=== PATIENT | male | born 1990 | race Native Hawaiian/Other Pacific Islander ===

== ENCOUNTER 2016-12-11 20:08 | Emergency (ER) | payer SELFPAY ==
[2016-12-11 20:22] VITALS: BP 116/65; PULSE 87; RESP 16; TEMP 98.2; O2SAT 100
--- NOTE | 2016-12-11 20:33 | ED PDOC ---
Lower Extremity Pain/Injury Time Seen by Provider: 12/11/16 20:27 Chief Complaint (Nursing): Abnormal Skin Integrity Chief Complaint (Provider): Bilateral Leg Lacerations History Per: Patient History/Exam Limitations: no limitations Onset/Duration Of Symptoms: Hrs Current Symptoms Are (Timing): Still Present Severity: Mild Additional Complaint(s): Patient is a 26 year old male presenting to the ED complaining of bilateral walters lacerations earlier today. Patient was exercising, jumping on boxes. Patient landed wrong on one of the boxes and cut both of his shins. Denies numbness, tingling, or pain. Tetanus is up to date. PMD: none Past Medical History Reviewed: Historical Data, Nursing Documentation, Vital Signs Vital Signs: Last Vital Signs Temp 98.2 F 12/11/16 20:20 Pulse 87 12/11/16 20:20 Resp 16 12/11/16 20:20 BP 116/65 12/11/16 20:20 Pulse Ox 100 12/11/16 20:20 - Medical History PMH: No Chronic Diseases - Family History Family History: States: No Known Family Hx - Home Medications Home Medications: Ambulatory Orders Medication Instructions Recorded Cephalexin [cephalexin] 500 mg PO BID #20 cap 12/11/16 - Allergies Allergies/Adverse Reactions: Allergies Allergy/AdvReac Type Severity Reaction Status Date / Time No Known Allergies Allergy Verified 12/11/16 20:19 Review of Systems ROS Statement: Except As Marked, All Systems Reviewed And Found Negative Constitutional: Negative for: Fever Musculoskeletal: Positive for: Other (LAC to both shins: b/l leg: lacerations to chin-left 3cm right 4cm full thickness active bleeding muscle belly shown no bone noted FROM for b/l Feet. ). Negative for: Leg Pain Physical Exam - Reviewed Nursing Documentation Reviewed: Yes Vital Signs Reviewed: Yes - Physical Exam Appears: Positive for: Well, Non-toxic, No Acute Distress Head Exam: Positive for: ATRAUMATIC, NORMAL INSPECTION, NORMOCEPHALIC Skin: Positive for: Normal Color, Warm, DRY Eye Exam: Positive for: Normal appearance, EOMI Neck: Positive for: Normal, Painless ROM Pulses-Dorsalis Pedis (L): 2+ Pulses-Dorsalis Pedis (R): 2+ Extremity: Positive for: Normal ROM (can flex feet), Other (b/l leg: lacerations to chin-left 3cm right 4cm full thickness active bleeding muscle belly shown no bone noted FROM for b/l Feet. ) Neurologic/Psych: Positive for: Alert, Oriented - ECG O2 Sat by Pulse Oximetry: 100 (RA) Pulse Ox Interpretation: Normal Medical Decision Making Medical Decision Making: Time: 20:30 Impression: LAC Plan: LAC repair 8 sutures on the left walters 9 sutures on the right walters wound instructions provided. abx given Scribe Attestation: Documented by Elise Morel acting as a scribe for LASHON Cates. Provider Attestation: All medical record entries made by the Scribe were at my direction and personally dictated by me. I have reviewed the chart and agree that the record accurately reflects my personal performance of the history, physical exam, medical decision making, and the department course for this patient. I have also personally directed, reviewed, and agree with the discharge instructions and disposition. Disposition - Clinical Impression Clinical Impression: Laceration - Patient ED Disposition Is Patient to be Admitted: No Counseled Patient/Family Regarding: Diagnosis, Need For Followup, Rx Given - Disposition Disposition: Routine/Home Disposition Time: 22:10 Condition: STABLE Additional Instructions: do not wet wound for first couple of days take your antibiotics return in 12 days for suture removal Prescriptions: Cephalexin [cephalexin] 500 mg PO BID #20 cap Instructions: Care For Your Stitches (ED), Laceration (ED) Laceration - Laceration Repair No standard instances Wound Length (In cm): 3 Description Of Wound: Linear, Contused Tissue Wound Cleansed With: Betadine Anesthesia: Lidocaine 1%, With Epi Wound Examination: Irrigated With Saline, No FB With Wound Exploration, No Tendon Injury With Wound Exploration Wound Debridement/Revision: Wound Debrided Wound Closure: Suture Suture Technique And Material Used: Interrupted, Prolene (3-.) Wound Complexity: Simple #2 Wound Length (In cm): 4 Description Of Wound: Linear Wound Cleansed With: Betadine, Sterile Saline Anesthesia: Lidocaine 1%, With Epi Wound Examination: Irrigated With Saline, No FB With Wound Exploration, No Tendon Injury With Wound Exploration Wound Debridement/Revision: Wound Debrided Wound Closure: Suture Suture Technique And Material Used: Interrupted, Prolene (3-0) Wound Complexity: Simple
== END 2016-12-11 21:55 | disposition home or self-care (01) ==
LOC: H.ER 20:08
DX: S81.819A Laceration without foreign body, unspecified lower leg, initial encounter (principal); W22.8XXA Striking against or struck by other objects, initial encounter; Y92.89 Other specified places as the place of occurrence of the external cause

== ENCOUNTER 2016-12-24 14:09 | Emergency (ER) | payer SELFPAY ==
[2016-12-24 14:27] VITALS: BP 116/61; PULSE 80; RESP 16; TEMP 99; O2SAT 99
--- NOTE | 2016-12-24 14:39 | ED PDOC ---
HPI: Wound Care - HPI Time Seen by Provider: 12/24/16 14:28 Chief Complaint (Nursing): Suture/Staple Removal Chief Complaint (Provider): Suture Removal History Per: Patient History Of Present Illness: Pt. had sutures placed on both shins on 12/16/2016 here in [facility] and is here for suture removal. Denies pain, fever, discharge, swelling. Past Medical History Reviewed: Historical Data, Nursing Documentation, Vital Signs Vital Signs: Last Vital Signs Temp 99.0 F 12/24/16 14:25 Pulse 80 12/24/16 14:25 Resp 16 12/24/16 14:25 BP 116/61 12/24/16 14:25 Pulse Ox 99 12/24/16 14:25 - Family History Family History: States: No Known Family Hx - Home Medications Home Medications: Ambulatory Orders Medication Instructions Recorded Cephalexin [cephalexin] 500 mg PO BID #20 cap 12/11/16 - Allergies Allergies/Adverse Reactions: Allergies Allergy/AdvReac Type Severity Reaction Status Date / Time No Known Allergies Allergy Verified 12/11/16 20:19 Review of Systems ROS Statement: Except As Marked, All Systems Reviewed And Found Negative Physical Exam - Physical Exam Appears: Positive for: Well, Non-toxic, No Acute Distress Skin: Positive for: Normal Color, Warm. Negative for: Rash Extremity: Positive for: Normal ROM, Other (R anterior leg with [address] on wound which is healing well and is without erythema, discharge, or swelling; L anterior leg with [address] on wound which is healing well and is without erythema, discharge, or swelling) - ECG O2 Sat by Pulse Oximetry: 99 Procedure: Wound Repair - Time Performed Time Performed: 14:35 - Time Out Time Out: Side verified, Site verified, Patient ID confirmed - Procedure Procedure: Wound Repair: 8 sutures removed from L leg; 9 sutures removed from R leg - Patient tolerated procedure Patient Tolerated Procedure:: Well Disposition - Clinical Impression Clinical Impression: Encounter for removal of sutures - Patient ED Disposition Is Patient to be Admitted: No - Disposition Disposition Time: 14:39 Condition: STABLE Instructions: Stitches Removal (ED)
== END 2016-12-24 15:08 | disposition home or self-care (01) ==
LOC: H.ER 14:09
DX: Z48.02 Encounter for removal of sutures (principal)